=== PATIENT | female | born 1975 | race Two or more races ===

== ENCOUNTER 2020-06-02 05:55 | Day surgery (SDC) | payer OTHER | END 2020-06-02 12:14 | disposition home or self-care (01) | LOC: AMB-ENDOS 05:55 → ADM 14:30 → AMB-ENDOS 14:30 | PROVIDERS: ATTEND Surgery | DX: D13.1 Benign neoplasm of stomach (principal); K44.9 Diaphragmatic hernia without obstruction or gangrene ==

== ENCOUNTER 2024-11-13 09:23 | Day surgery (SDC) | payer OTHER ==
[2024-11-05 13:09] VITALS: BP 113/83
[~2024-11-13] VITALS: Ht 165.1 cm; Wt 62.6 kg
[~2024-11-13 09:23] MED LIST: RESTORIL30 M1 PO; SEROQUEL XR200 MG PO; SYNTHROID137 MCG PO; TRAZODONE HCL150 MG PO; ZOLOFT100 MG PO
[2024-11-13] MEDS ORDERED: CEFAZOLIN SODIUM 1,000 MG VIAL IV ONE (12:30)
[2024-11-13] MEDS ORDERED: BUPIVACAINE HCL 30 ML VIAL IJ ONE (12:30)
[2024-11-13] MEDS ORDERED: ISOPROPYL ALCOHOL 30 ML OUNCE TOP ONE (12:30)
[2024-11-13] MEDS ORDERED: MORPHINE SULFATE 4 MG/ML VIAL IV ONE (12:35)
== END 2024-11-13 15:20 | disposition home or self-care (01) ==
LOC: CIR.AMB 09:23
PROVIDERS: ATTEND Orthopaedic Surgery
DX: M77.12 Lateral epicondylitis, left elbow (principal); M67.932 Unspecified disorder of synovium and tendon, left forearm; M24.822 Other specific joint derangements of left elbow, not elsewhere classified; Z88.6 Allergy status to analgesic agent; F41.0 Panic disorder [episodic paroxysmal anxiety]

== ENCOUNTER 2025-08-06 15:06 | Outpatient (CLI) | payer OTHER | END 2025-08-06 15:15 | disposition home or self-care (01) | LOC: SONOGRAMA 15:06 | PROVIDERS: ATTEND Pathology Anatomic Pathology & Clinical Pathology | DX: D34 Benign neoplasm of thyroid gland (principal); E07.89 Other specified disorders of thyroid; E04.1 Nontoxic single thyroid nodule ==